=== PATIENT | female | born 1990 | race Asian ===

== ENCOUNTER 2019-01-23 20:01 | Inpatient (IN) | payer BC ==
[2019-01-23] MEDS ORDERED: Lactated Ringers 1000 ML Bag* 1,000 ML IV ONE ×2 (20:10→21:08)
--- NOTE | 2019-01-23 20:18 | HP ---
General Information - Reason for Visit Labor - General Information Maternal Age: 28 Grav: 2 Para: 1 SAB: 0 IEA: 0 Estimated Due Date: 01/23/19 Determined By: LMP Gestational Age in Weeks/Days: 40-0/7 Maternal Blood Type and Rh: O Positive - Results this Serology/RPR Result: Non-Reactive Rubella Result: Immune HBsAg Result: Negative HIV Result: Negative GBS Culture Result: Negative Past Medical History Delivery History: Hx Uncomplicated Vaginal Delivery Delivery History Comment: 02/2016 8lbs 5oz male. Delivered at [place], [place] Pertinent Past Medical History: See Records Past Medical History Comment: 03/2015 Fibroadenoma of left breast Pertinent Past Surgical History: None Pertinent Family History: See Records Family History Comment: PGM: , Liver Cancer PGF: , [place] MGM: DM, Type 2 - Antepartal Records Antepartal Records: Reviewed, Uncomplicated Review of Systems Constitutional: Uncomfortable - with UCs CV Complaint: No Respiratory: Shortness of Breath: No Gastrointestinal: No Nausea/Vomiting, Normal Bowel Movement Genitourinary: No Dysuria, No Bleeding, No Leaking Fluid Musculoskeletal: No Complaint, No Epigastric Pain Neurological: No Headache, No Visual Changes Movement: Normal Exam Allergies/Adverse Reactions: Allergies No Known Allergies Allergy (Verified 01/23/19 20:16) BP 107/94 HR 92 SpO2 98% on RA - Measurements Height: 5 ft 5.5 in Weight: 143 lb Body Mass Index (BMI): 23.4 Pre- Weight: 117 lb - Exam Breast: Breast Exam Deferred CVA: No CVA Tenderness Extremities: No Edema Heart: Normal Rhythm/Heart Sounds HEENT: No Significant Findings Lungs: Clear Bilaterally Rectal: Rectal Exam Deferred Reflexes: DTR 2+ Thyroid: No Thyromegaly - Abdominal Exam Abdomen Exam: Non-Tender - Ultrasound/Biophysical Profile Ultrasound Status: Not Done Targeted Exam Findings See L&D Outpatient Visit Provider Note for Findings: N/A Estimated Weight: 8lbs by Klaudia Cervical Exam: 6cm, 7cm Effacement: 100% Station: -1 Presenting Part: Vertex Membrane Status: Intact Sterile Speculum Exam: Not done Bleeding/Discharge: None EFM Findings - External Monitor Findings Baseline Heart Rate: 140 External Monitor Findings: Accelerations Present, No Pattern of Variable or Late Decelerations, Variability Moderate, Baseline Stable External Monitor Findings Comment: No evidence of metabolic acidemia Contractions: Regular, Moderate Contraction Frequency: q 2-4 Assessment/Plan - Assessment IUP at 40-0/7 in labor No evidence of metabolic acidemia - Plan Plan: Admit - Anticipate Vaginal Delivery Plan Comment: Pt with strong preference to have labor epidural. Will place IV and begin IV fluid bolus. Plan anesthesia consult - Date/Time of Admission Date of Admission: 01/23/19 Time of Admission: 20:15
[2019-01-23 20:34] LABS: ABS Eosinophils 0.1 10^3/ul (0-0.6); ABS Lymphocytes 2.3 10^3/ul (1.0-4.8); ABS Monocytes 0.5 10^3/ul (0-0.8); ABS Neutrophils 4.3 10^3/ul (1.5-7.7); Eosinophil % 0.8 %; Hematocrit 35 % (35-47); Hemoglobin 12.4 g/dL (12.0-16.0); Lymphocyte % 32.2 %; Mean Corpuscular HGB Conc 35 g/dL (31-36); Mean Corpuscular Hemoglobin 36 pg (27-31); Mean Corpuscular Volume 103 fL (80-97); Platelet Count 187 10^3/uL (150-450); Red Cell Distribution Width 14 % (10-15); White Blood Count 7.2 10^3/uL (3.5-10.8)
[2019-01-23] MEDS ORDERED: OBEPIDURAL* 250 ML EPIDURAL ONE (20:40)
[2019-01-23 20:50] LABS: Urine Benzodiazepine Screen None Detected (None Detect); Urine Opiates Screen None Detected (None Detect)
[2019-01-23] MEDS ORDERED: Phenylephrine 40 MCG/ML SYRINGE IV PUSH PRN ×2 (21:08)
[2019-01-23] MEDS ORDERED: Sodium Citrate/Citric Acid* 15 ML UDC PO PRN (21:08)
[2019-01-23] MEDS ORDERED: Famotidine TAB* 20 MG PO PRN (21:08)
--- NOTE | 2019-01-23 21:49 | PN ---
Progress Note - Progress Note Date of Service: 01/23/19 Note: S: Pt comfortable s/p CEI placement. FOB and auto customize painter at bedside for support. Pt resting comfortably O: BP 116/66 HR 71 SpO2 98% on RA FHT 135bpm. Moderate variability. +Accels. Variable decels with some UCs, rapid return to baseline UCs q 2-3 VE 8-9/100%/vtx 0, amniotomy to clear fluid A: IUP at 40 weeks in active labor Cat II FHT: Doubt metabolic acidemia P: PARQ amniotomy. Pt and FOB agree. Done. Anticipate trial of pushing soon
[2019-01-23] MEDS ORDERED: OBEPIDURAL* 250 ML EPIDURAL SCH (22:00)
[2019-01-23] MEDS ORDERED: Lactated Ringers 1000 ML Bag* 1,000 ML IV SCH (22:00)
[2019-01-23] MEDS ORDERED: Oxytocin in LR* 20 UNITS/1,000 ML BAG IVPB ONE (22:09)
[2019-01-24] MEDS ORDERED: Oxytocin in LR* 0 UNITS/0 ML BAG IVPB ONE (00:21)
[2019-01-24] MEDS ORDERED: Lidocaine 1% INJ* 10 MG/ML 30 ML SDV ONE (00:31)
--- NOTE | 2019-01-24 01:01 | PROCNOTE ---
[facility] OB: Delivery Note - Delivery A Date of : 01/24/19 Time of : 00:27 [place] Sex: Male Score 1 Minute: 8 Score 5 Minutes: 9 Gestational Age in Weeks and Days at Delivery: 40 Weeks and 1 Days Delivery Method: Spontaneous Vaginal Labor: Spontaneous Did Patient attempt ?: N/A, No Previous Amniotic Fluid: Clear Estimated Blood Loss: 400 Anesthesia/Analgesia: CEI for Labor - placed by Dr. Jaimes Delivered By: Nuha Ray - Nursery Level of Nursery: Regular/Bedside - Perineum Perineal Injury: 2nd Degree - repaired in the usual fashion with 3-0 Vicryl under local infiltration 1% lidocaine and epidural analgesia. Anatomy restored and good hemostasis achieved. Pt tolerated well Perineal Repair: By Delivering Practioner - Events Delivery Events of Note: Pitocin Only After Delivery, Supplemental O2 to Mother - Additional Delivery Notes Additional Delivery Notes: Patient admitted in labor with expected progression to complete. Amniotomy to clear fluid at 8-9cm. Length of labor 5 hours, 20 min. Pushed x 1 hour, 55 minutes. Category II FHT with pushing. Variable decels noted with UCs, good recovery to baseline. O2 by mask and increased IV fluids as well as steady descent with pushing led to of a liveborn male. Slow, controlled delivery of head. ROT to ROP. Tight nuchal cord x 2 noted. Unable to reduce or somersault through. Cord clamped x 2 and cut on perineum. Shoulders followed with maternal push. vigorous with spontaneous cry. HR>110bpm. Delivered to maternal abdomen. Spontaneous delivery intact placenta. Membranes appeared complete but then free flow bleeding and additional trailing membranes noted. Membranes teased out with a ring forcep. Fundus firm to massage with IV pitocin infusing. Bleeding resolved. Repair as above. EBL 400mL. At time of note mother and in stable condition. Planning to breast feed.
[2019-01-24] MEDS ORDERED: Glycerin ADULT SUPP PR PRN (01:03)
[2019-01-24] MEDS ORDERED: Dibucaine 1% 28.35 GM TUBE PR PRN (01:03)
[2019-01-24] MEDS ORDERED: Acetaminophen TAB* 325 MG PO PRN (01:03)
[2019-01-24] MEDS ORDERED: Oxytocin in LR* 20 UNITS/1,000 ML BAG IVPB SCH (02:00)
[2019-01-24] MEDS ORDERED: Lactated Ringers 1000 ML Bag* 1,000 ML IV SCH (02:00)
[2019-01-24] MEDS: Ibuprofen TAB* 600 MG PO SCH ×5 (07:46→22:48)
[2019-01-24] MEDS: Docusate CAP* 100 MG PO SCH ×4 (07:46→22:49)
[2019-01-24] MEDS ORDERED: Simethicone TAB* 80 MG TAB.CHEW PO SCH (08:30)
[2019-01-25] MEDS: Ibuprofen TAB* 600 MG PO SCH ×5 (06:02→22:15)
[2019-01-25] MEDS: Witch Hazel PAD* JAR TOPICAL PRN (06:17)
[2019-01-25 07:32] LABS: ABS Eosinophils 0.1 10^3/ul (0-0.6); ABS Lymphocytes 1.6 10^3/ul (1.0-4.8); ABS Monocytes 0.4 10^3/ul (0-0.8); ABS Neutrophils 6.1 10^3/ul (1.5-7.7); Eosinophil % 0.7 %; Hematocrit 29 % (35-47); Hemoglobin 10.4 g/dL (12.0-16.0); Lymphocyte % 19.4 %; Mean Corpuscular HGB Conc 35 g/dL (31-36); Mean Corpuscular Hemoglobin 37 pg (27-31); Mean Corpuscular Volume 103 fL (80-97); Mean Platelet Volume 8.3 fL (7.4-10.4); Platelet Count 165 10^3/uL (150-450); Red Blood Count 2.84 10^6 /uL (3.70-4.87); Red Cell Distribution Width 14 % (10-15); White Blood Count 8.1 10^3/uL (3.5-10.8)
[2019-01-25] MEDS: Docusate CAP* 100 MG PO SCH ×3 (10:14→22:15)
[2019-01-25] MEDS: Ferrous Gluconate TAB* 324 MG TAB PO SCH ×2 (10:14→22:15)
[2019-01-26] MEDS: Witch Hazel PAD* JAR TOPICAL PRN ×2 (02:35→12:50)
[2019-01-26] MEDS: Ibuprofen TAB* 600 MG PO SCH ×2 (06:07→08:16)
[2019-01-26 08:09] VITALS: BP 112/62
[2019-01-26] MEDS: Docusate CAP* 100 MG PO SCH (08:16)
[2019-01-26] MEDS: Ferrous Gluconate TAB* 324 MG TAB PO SCH (08:16)
== END 2019-01-26 14:40 | disposition home or self-care (01) | DRG 560 ==
LOC: MCHOBOUT 20:01 → MCHOB 20:09
PROVIDERS: ADMIT Midwife; ATTEND Midwife
PROC: 10E0XZZ Delivery of Products of Conception, External Approach (ICD-10-PCS; principal; 2019-01-24)
PROC: 10907ZC Drainage of Amniotic Fluid, Therapeutic from Products of Conception, Via Natural or Artificial Opening (ICD-10-PCS; 2019-01-24)
PROC: 4A1HXCZ Monitoring of Products of Conception, Cardiac Rate, External Approach (ICD-10-PCS; 2019-01-24)
PROC: 0KQM0ZZ Repair Perineum Muscle, Open Approach (ICD-10-PCS; 2019-01-24)
DX: O48.0 Post-term pregnancy (principal); O72.2 Delayed and secondary postpartum hemorrhage; Z37.0 Single live birth; O70.1 Second degree perineal laceration during delivery; O76 Abnormality in fetal heart rate and rhythm complicating labor and delivery; O69.1XX0 Labor and delivery complicated by cord around neck, with compression, not applicable or unspecified; Z3A.40 40 weeks gestation of pregnancy
CPT/HCPCS: 36415; 80307; 85025; 86850; 86900; 86901; A9270-GY